=== PATIENT | female | born 1970 | race African-American/Black ===

== ENCOUNTER 2023-02-01 13:23 | Outpatient (RCR) | payer BC, SELFPAY | END 2023-02-01 23:59 | disposition home or self-care (01) | LOC: RPT 13:23 | PROVIDERS: ATTENDING PHYSICIAN Urology; FAMILY PHYSICIAN Nurse Practitioner | DX: N39.41 Urge incontinence (principal); N30.10 Interstitial cystitis (chronic) without hematuria; Z73.6 Limitation of activities due to disability | CPT/HCPCS: 97110 ==

== ENCOUNTER 2023-03-17 14:17 | Outpatient (RCR) | payer BC, SELFPAY | END 2023-03-17 15:24 | disposition home or self-care (01) | LOC: RPT 14:17 | PROVIDERS: ATTENDING PHYSICIAN Urology; FAMILY PHYSICIAN Nurse Practitioner | DX: N39.41 Urge incontinence (principal); N30.10 Interstitial cystitis (chronic) without hematuria; Z73.6 Limitation of activities due to disability | CPT/HCPCS: 97110 ==

== ENCOUNTER 2023-05-01 08:30 | Day surgery (SDC) | payer BC, SELFPAY ==
[2023-04-18 08:45] LABS: % Basophils 0.4 % (0-2); % Eosinophils 3.8 % (0-6); % Immature Granulocytes 0.2 % (0-0.5); % Lymphocytes 46.5 % (20.5-51.1); % Monocytes 7.2 % (1.7-9.3); % Neutrophils 41.9 % (42.2-75.2); Absolute Eosinophils 0.2 10^3/uL (0-0.7); Absolute Lymphocytes 2.6 10^3/uL (1.2-3.4); Absolute Monocytes 0.4 10^3/uL (0.1-0.6); Absolute Neutrophils 2.3 10^3/uL (1.4-6.5); Hematocrit 34.9 % (37.0-47.0); Hemoglobin 11.7 g/dL (12.0-16.0); Mean Corp Hgb Conc. 33.5 g/dL (33.0-37.0); Mean Corpuscular Hgb 26.2 pg (27.0-31.0); Mean Corpuscular Volume 78.1 fL (81.0-99.0); Mean Platelet Volume 10.5 fL (7.4-10.4); Nucleated Red Blood Cells % 0 %; Platelet Count 376 10^3/uL (130-400); Red Blood Cell Count 4.47 10^6/uL (4.20-5.40); Red Cell Dist. Width 13.6 % (11.5-14.5); White Blood Cell Count 5.6 10^3/uL (4.8-10.8)
[2023-04-18 08:55] LABS: PT 11.9 Sec (11.4-14.6)
[2023-04-18 08:56] LABS: APTT 28.8 Sec (23.4-35.0)
[2023-04-18 09:16] LABS: Blood Urea Nitrogen 10 mg/dl (7-17); Calcium 9.1 mg/dl (8.4-10.2); Carbon Dioxide 26 mmol/L (22-30); Chloride 104 mmol/L (98-107); Glucose 123 mg/dl (70-99); Potassium 4.2 mmol/L (3.5-5.1); Sodium 136 mmol/L (135-145); eGFR > 60.00
[2023-04-18 09:20] LABS: Urine Albumin 2+ (Neg - Trace); Urine Bilirubin Negative (Negative); Urine Character Clear (Clear); Urine Color Yellow; Urine Glucose Negative (Negative); Urine Ketone Negative (Negative); Urine Leukocyte Negative (Negative); Urine Nitrite Negative (Negative); Urine Occult Blood Negative (Negative); Urine Urobilinogen Negative (Neg - 1+)
[2023-04-18 10:05] LABS: Urine Bacteria Few (Negative); Urine Red Blood Cell 0-2 /HPF (0-2)
[2023-04-18 12:25] VITALS: BMI 33.9
[2023-05-01] VITALS (10 sets, daily range): BP systolic 132–159; BP diastolic 68–97; BMI 33.9
[2023-05-01 08:29] LABS: Glucose - Point of Care 144 mg/dl (70-99)
[2023-05-01] MEDS: TRANSDERM-SCOP 1 PATCH TRANSDERM (08:42)
[2023-05-01] MEDS: Pyridium 200 MG PO (08:42)
[2023-05-01] MEDS: NORMOSOL-R 1000 IV (08:42)
[2023-05-01 10:03] LABS: Glucose - Point of Care 118 mg/dl (70-99)
--- NOTE | 2023-05-01 10:30 | SUR.PHASEI ---
Pt received Pyridium 200mg this morning in [facility]. Dr. Mendez made aware and will not give the other dose ordered in PACU due to the one she took this morning.
[2023-05-01] MEDS: ROXICODONE 5 MG PO (11:39)
== END 2023-05-01 12:00 | disposition home or self-care (01) ==
LOC: SDS 08:30
PROVIDERS: ATTENDING PHYSICIAN Urology; FAMILY PHYSICIAN Nurse Practitioner
DX: N30.10 Interstitial cystitis (chronic) without hematuria (principal); N39.41 Urge incontinence; N32.89 Other specified disorders of bladder
CPT/HCPCS: 52287; 52260; 80048; 81003; 81015; 82962; 85025; 85610; 85730; 87086; J0585

== ENCOUNTER → 2023-05-31 17:47 | Outpatient (REF) | payer BC, SELFPAY | LOC: RAD 17:47 | PROVIDERS: ATTENDING PHYSICIAN Nurse Practitioner | DX: M54.2 Cervicalgia (principal) | CPT/HCPCS: 72052 ==

== ENCOUNTER → 2023-07-14 | Outpatient (REF) | payer BC, SELFPAY | LOC: DHSLP | PROVIDERS: ATTENDING PHYSICIAN Internal Medicine; FAMILY PHYSICIAN Nurse Practitioner | DX: G47.33 Obstructive sleep apnea (adult) (pediatric) (principal) | CPT/HCPCS: 95800 ==

== ENCOUNTER 2023-08-09 15:20 | Outpatient (RCR) | payer BC, SELFPAY | END 2023-08-09 23:59 | disposition home or self-care (01) | LOC: RPT 15:20 | PROVIDERS: ATTENDING PHYSICIAN Pain Medicine Interventional Pain Medicine; FAMILY PHYSICIAN Nurse Practitioner | DX: M54.12 Radiculopathy, cervical region (principal); Z73.6 Limitation of activities due to disability | CPT/HCPCS: 97110; 97140; 97161 ==

== ENCOUNTER 2023-09-13 11:16 | Outpatient (RCR) | payer BC, SELFPAY | END 2023-09-13 23:59 | disposition home or self-care (01) | LOC: RPT 11:16 | PROVIDERS: ATTENDING PHYSICIAN Pain Medicine Interventional Pain Medicine; FAMILY PHYSICIAN Nurse Practitioner | DX: M54.12 Radiculopathy, cervical region (principal); Z73.6 Limitation of activities due to disability | CPT/HCPCS: 97110; 97140 ==

== ENCOUNTER 2023-09-20 11:07 | Outpatient (RCR) | payer BC, SELFPAY | END 2023-09-20 23:59 | disposition home or self-care (01) | LOC: RPT 11:07 | PROVIDERS: ATTENDING PHYSICIAN Pain Medicine Interventional Pain Medicine; FAMILY PHYSICIAN Nurse Practitioner | DX: M54.12 Radiculopathy, cervical region (principal); Z73.6 Limitation of activities due to disability | CPT/HCPCS: 97110; 97140 ==

== ENCOUNTER → 2023-11-22 15:49 | Outpatient (REF) | payer BC, SELFPAY | LOC: RAD 15:49 | PROVIDERS: ATTENDING PHYSICIAN Nurse Practitioner Family | DX: R05.8 Other specified cough (principal) | CPT/HCPCS: 71046 ==

== ENCOUNTER → 2023-11-24 06:36 | Day surgery (SDC) | payer BC, SELFPAY | LOC: GI 06:36 | PROVIDERS: ATTENDING PHYSICIAN Internal Medicine Gastroenterology | DX: R13.10 Dysphagia, unspecified (principal); R12 Heartburn; K44.9 Diaphragmatic hernia without obstruction or gangrene; K31.89 Other diseases of stomach and duodenum; K29.50 Unspecified chronic gastritis without bleeding | CPT/HCPCS: 43239; 88305; 88342 ==

== ENCOUNTER 2023-12-04 06:42 | Day surgery (SDC) | payer BC, SELFPAY ==
[2023-11-24 08:41] VITALS: BMI 32.4
[2023-11-24 10:57] LABS: Urine Albumin 2+ (Neg - Trace); Urine Bilirubin Negative (Negative); Urine Character Clear (Clear); Urine Color Yellow; Urine Glucose Negative (Negative); Urine Ketone Negative (Negative); Urine Leukocyte Negative (Negative); Urine Nitrite Negative (Negative); Urine Occult Blood Negative (Negative); Urine Specific Gravity 1.015 (<1.030); Urine Urobilinogen Negative (Neg - 1+)
[2023-11-24 10:58] LABS: Hematocrit 36.8 % (37.0-47.0); Hemoglobin 12.1 g/dL (12.0-16.0); Mean Corp Hgb Conc. 32.9 g/dL (33.0-37.0); Mean Corpuscular Hgb 26.7 pg (27.0-31.0); Mean Corpuscular Volume 81.1 fL (81.0-99.0); Mean Platelet Volume 10.7 fL (7.4-10.4); Platelet Count 364 10^3/uL (130-400); Red Blood Cell Count 4.54 10^6/uL (4.20-5.40); Red Cell Dist. Width 13.9 % (11.5-14.5); White Blood Cell Count 6.3 10^3/uL (4.8-10.8)
[2023-11-24 11:06] LABS: Urine Red Blood Cell 0-2 /HPF (0-2); Urine White Cell 0-2 /HPF (0-5)
[2023-11-24 11:07] LABS: INR 0.86; PT 11.6 Sec (11.4-14.6)
[2023-11-24 11:08] LABS: APTT 29.4 Sec (23.4-35.0)
[2023-11-24 11:36] LABS: % Basophils 0.5 % (0-2); % Eosinophils 2.4 % (0-6); % Immature Granulocytes 0.2 % (0-0.5); % Lymphocytes 53.7 % (20.5-51.1); % Monocytes 6.7 % (1.7-9.3); % Neutrophils 36.5 % (42.2-75.2); Absolute Eosinophils 0.2 10^3/uL (0-0.7); Absolute Lymphocytes 3.4 10^3/uL (1.2-3.4); Absolute Monocytes 0.4 10^3/uL (0.1-0.6); Absolute Neutrophils 2.3 10^3/uL (1.4-6.5); Nucleated Red Blood Cells % 0 %
[2023-11-24 11:45] LABS: Blood Urea Nitrogen 13 mg/dl (7-17); Calcium 9.6 mg/dl (8.4-10.2); Carbon Dioxide 30 mmol/L (22-30); Chloride 102 mmol/L (98-107); Estimated Creatinine Clearance 123 ml/min; Glucose 108 mg/dl (70-99); Potassium 4.6 mmol/L (3.5-5.1); Sodium 143 mmol/L (135-145); eGFR > 60.00
[2023-12-04] VITALS (11 sets, daily range): BP systolic 121–156; BP diastolic 66–98; BMI 32.4
[2023-12-04 10:02] LABS: Glucose - Point of Care 116 mg/dl (70-99)
[2023-12-04] MEDS: TRANSDERM-SCOP 1 PATCH TRANSDERM (10:35)
[2023-12-04 11:37] LABS: Glucose - Point of Care 92 mg/dl (70-99)
[2023-12-04] MEDS: Pyridium 200 MG PO (11:57)
== END 2023-12-04 13:10 | disposition home or self-care (01) ==
LOC: SDS 06:42
PROVIDERS: ATTENDING PHYSICIAN Urology; FAMILY PHYSICIAN Nurse Practitioner
DX: N30.10 Interstitial cystitis (chronic) without hematuria (principal); N39.41 Urge incontinence
CPT/HCPCS: 52287; 52260; 80048; 81003; 81015; 82962; 85025; 85610; 85730; 93005; J0585

== ENCOUNTER 2024-01-02 12:45 | Inpatient (IN) | payer BC, SELFPAY ==
[2024-01-02] VITALS (8 sets, daily range): BP systolic 123–156; BP diastolic 74–108; BMI 30.7
--- NOTE | 2024-01-02 09:20 | ED.GENMED ---
History of Present Illness
General
Chief Complaint: Urinary Symptoms
Source: patient
Exam Limitations: none
Time Seen by Provider: 01/02/24 09:04
Nursing documentation reviewed up to this point in time: agreed with
History of Present Illness
History of Present Illness:
53 yr old female with PMH of interstitial cystitis presents for urinary symptoms. Patient reports she was sent in by . On December 03 she had cystoscopy hydrodistention of the bladder with Botox injections for chronic interstitial
cystitis and when she went for her follow-up her urine culture was found to be positive. She presents with urine culture results that do show E. coli and Klebsiella sensitive to cefepime.
Patient denies any fevers but does complain of urinary frequency cloudy and smelly urine.
Denies any nausea/vomiting/abdominal pain.
Review of Systems
Review of Systems
Allergies reviewed?: Yes
All Other Systems: ROS reviewed and negative except as documented in HPI and ROS
Constitutional: Denies fever, fatigue or chills
Cardiac: Reports no symptoms
ABD/GI: Reports no symptoms
: Reports frequency and other (Cloudy urine foul smelling )
Musculoskeletal: Reports no symptoms
Skin: Reports no symptoms
Psychiatric: Reports no symptoms
Phy Exam
General Physical Exam
General Presentation: well appearing
General age: appears stated age
General Skin: warm and dry
General Habitus: normal
General Mental: alert
General Hydration: appears well hydrated
Gastrointestinal Exam
Gastrointestinal Exam: soft
Neurological Exam
Neurological Exam: alert and oriented x3
Musculoskeletal Exam
Musculoskeletal Exam: full ROM
Skin Exam
Skin Exam: normal color and warm/dry
Psychiatric Exam
Psychiatric Exam: normal mood/affect
Course
Orders/Labs/Results
Orders:
Orders
01/02/24 09:19
IV Insert/Care/Rem.- Treatment PRN
01/02/24 09:32
Complete Blood Count/With Diff Urgent
Comprehensive Metabolic Panel Urgent
Urinalysis Reflex To Culture Urgent
Date Specimen was Collected: 01/02/24
Time Specimen was Collected: :25
Urine Microscopic Reflex Cult Urgent
Urine Culture Urgent
ALPHONSO Source: U
Specimen Description:
Date Specimen was Collected: 01/02/24
Time Specimen was Collected: :
01/02/24 10:22
Cefepime HCl [Maxipime] 1,000 mg IV NOW STA
01/02/24 10:25
Sterile Water [Sterile Water For Injection] 20 ml .ROUTE .STK-MED
Abnormal Lab Results
01/02/24
09:32
Hgb 11.6 L g/dL
(12.0-16.0)
Hct 35.3 L %
(37.0-47.0)
MCH 26.7 L pg
(27.0-31.0)
MCHC 32.9 L g/dL
(33.0-37.0)
Glucose 100 H mg/dl
(70-99)
ALT 38 H U/L
(0-35)
Urine Nitrite (Reflex) Positive A
(Negative)
Leukocyte Esterase Rfl 2+ A
(Negative)
Urine RBC 11-15 A /HPF
(0-2)
Urine WBC (Reflex) 40-50 A /HPF
(0-5)
Urine Bacteria (Reflex) Many A
(Negative)
Urine Albumin (Reflex) 1+ A
(Neg - Trace)
01/02/24 09:32
01/02/24 09:32
Vital Signs
Initial and Last Documented VS:
Initial Vital Signs
Temp Pulse Resp BP Pulse Ox
98.2 F 87 16 136/82 99
01/02/24 08:47 01/02/24 08:47 01/02/24 08:47 01/02/24 08:47 01/02/24 08:47
Last Documented Vital Signs
Temp Pulse Resp BP Pulse Ox
98.2 F 85 16 123/84 98
01/02/24 08:47 01/02/24 10:07 01/02/24 10:07 01/02/24 10:07 01/02/24 10:07
MDM/Problems Addressed
Differential Diagnosis Includes:
not limited to: uti
MDM/Problems Addressed:
As documented patient is a 53-year-old female with chronic interstitial cystitis followed by . Patient was sent in for admission for positive urine culture which was resistant to most antibiotics except IV cefepime. Patient denies any
fever she is nontoxic-appearing she does complain of cloudy foul-smelling urine with urinary frequency. She is afebrile with a normal white count, normal chemistries urine does appear positive with nitrates and 40�50 white blood cells 11�15 RBCs
and many bacteria.
Case reviewed with Dr. Ordoñez will admit.
*Pulse Oximetry
Patient hypoxic: no
*Critical Care Note
Total Time (30-74mins, 75-104mins- exclusive of procedures): Not Applicable
Data Reviewed
Review of Other/Old Records Reveals: Other (previous operative reports for botox of bladder 12/04/23 )
Patient Management
Discussion with other providers: Fingerprint Expert (DR Ordoñez )
ED Attending Note
-
Portions of this chart may have been created with voice recognition software.� Occasional wrong word or��sound alike� substitutions may have occurred due to the inherent limitations of voice recognition software.
Discharge Plan
Departure
Patient Disposition: Admit
Date of Disposition: 01/02/24
Time of Disposition: 10:52
Admit to: Med/Surg
Admit to doctor: hospitalist
Presentation/result/management discussed w/ accepting MD/DO: Hospitalist
Patient with high blood pressure during this ER visit?: No
Condition: Fair
Covid-19: Not Applicable
Discharge Problem:
UTI (urinary tract infection)
Prescriptions:
No Action
omeprazole 40 mg Capsule,Delayed Release(Dr/Ec)
40 mg PO DAILY
cetirizine [Zyrtec] 10 mg Tablet
10 mg PO DAILY
biotin 10,000 mcg Capsule
10,000 mcg PO NOON
fluticasone propionate [Flonase Allergy Relief] 50 mcg/actuation [place],Suspension
1 spray INTRANASAL DAILY
chromium picolinate 1,000 mcg Tablet
1,000 mcg PO NOON
multivitamin Tablet
1 tab PO NOON
nitrofurantoin monohyd/m-cryst [Macrobid] 100 mg Capsule
100 mg PO PRN PRN (Reason: UTI )
metformin 500 mg Tablet Extended Release 24 Hr
1,000 mg PO 1800
evening primrose oil 1,300 mg Capsule
1,300 mg PO NOON
famotidine 40 mg Tablet
40 mg PO HS
Estroven 155 mg Capsule
1 cap PO DAILY
Sea Kumari 500 MG
2 tab PO NOON
Trulance 3 mg Tablet
3 mg PO DAILY
Referrals:
Hailey Pelletier CRNP [Family Provider] -
Interventions
Interventions:
*Risk Screen - Suicide Last Done: 01/02/24 08:47
*General Assessment Last Done: 01/02/24 08:47
*Neglect/Abuse Screening Last Done: 01/02/24 08:47
ED- Fall Risk Assessment Last Done: 01/02/24 09:03
*ED COVID-19 Vaccine History Last Done: 01/02/24 09:10
ED-Female Genitourinary Assessment Last Done: 01/02/24 09:10
Discharge Date and Time
Print Language: CZECH
[2024-01-02 09:45] LABS: % Basophils 0.4 % (0-2); % Eosinophils 4.8 % (0-6); % Immature Granulocytes 0.2 % (0-0.5); % Lymphocytes 43.5 % (20.5-51.1); % Monocytes 6.2 % (1.7-9.3); % Neutrophils 44.9 % (42.2-75.2); Absolute Eosinophils 0.2 10^3/uL (0-0.7); Absolute Lymphocytes 2.2 10^3/uL (1.2-3.4); Absolute Monocytes 0.3 10^3/uL (0.1-0.6); Absolute Neutrophils 2.2 10^3/uL (1.4-6.5); Hematocrit 35.3 % (37.0-47.0); Hemoglobin 11.6 g/dL (12.0-16.0); Mean Corp Hgb Conc. 32.9 g/dL (33.0-37.0); Mean Corpuscular Hgb 26.7 pg (27.0-31.0); Mean Corpuscular Volume 81.1 fL (81.0-99.0); Mean Platelet Volume 9.6 fL (7.4-10.4); Nucleated Red Blood Cells % 0 %; Platelet Count 366 10^3/uL (130-400); Red Blood Cell Count 4.35 10^6/uL (4.20-5.40); Red Cell Dist. Width 13.7 % (11.5-14.5)
[2024-01-02 09:59] LABS: ALT (SGPT) 38 U/L (0-35); AST (SGOT) 35 U/L (14-36); Albumin 4.4 g/dl (3.5-5.0); Alkaline Phosphatase 51 U/L (38-126); Blood Urea Nitrogen 13 mg/dl (7-17); Calcium 9.8 mg/dl (8.4-10.2); Carbon Dioxide 26 mmol/L (22-30); Chloride 103 mmol/L (98-107); Estimated Creatinine Clearance 124 ml/min; Glucose 100 mg/dl (70-99); Potassium 4.5 mmol/L (3.5-5.1); Sodium 139 mmol/L (135-145); Total Bilirubin 0.4 mg/dl (0.2-1.3); Total Protein 7.3 g/dl (6.3-8.2); eGFR > 60.00
[2024-01-02 10:06] LABS: Urine Albumin 1+ (Neg - Trace); Urine Bilirubin Negative (Negative); Urine Character Clear (Clear); Urine Color Yellow; Urine Glucose Negative (Negative); Urine Ketone Negative (Negative); Urine Leukocyte 2+ (Negative); Urine Nitrite Positive (Negative); Urine Occult Blood Negative (Negative); Urine Specific Gravity 1.015 (<1.030); Urine Urobilinogen Negative (Neg - 1+)
[2024-01-02] MEDS: MAXIPIME 1000 MG IV (10:32)
[2024-01-02 10:39] LABS: Urine Squamous Cell 26-30 /LPF (Few); Urine Urothelial Cell 0-2 /LPF (FEW)
[2024-01-02 10:40] LABS: Urine Bacteria Many (Negative); Urine White Cell 40-50 /HPF (0-5)
--- NOTE | 2024-01-02 12:05 | HPS.HSE ---
Family Physician
-
Family Physician: JOHN Hinson
Chief Complaint
-
urinary frequency
History of Present Illness
53 yr old female with PMH of interstitial cystitis ,GERD, Type 2 Dm presents for urinary frequency and smelly urine. patient stated lower abdominal and back cramps. Patient reports she was sent in by . On December 03 she had cystoscopy
hydrodistention of the bladder with Botox injections for chronic interstitial cystitis and when she went for her follow-up her urine culture was found to be positive. patient stated, she developed the symptoms two days after the procedure. patient
denied fever, chills, chest pain, sob. denied PHILLIPS, dizzy or syncopal episode.denied abdominal pain,n,v,d. her urine culture result showd E. coli and Klebsiella sensitive to cefepime.
patient received a dose of cefepime in ER. admitting for further management.
Medical History
Past Medical History
Past Medical History: Reports Other
Additional Past Medical History:
Interstitial cystitis
IBS
Anxiety
Heartgard
Type 2 diabetes
Depression
Obstructive sleep apnea
Hiatal hernia
Hemorrhoids
Past Surgical History: Reports Other
Additional Past Surgical History:
Partial hysterectomy
Tubularization
Ganglion cyst removed
Cell repair
Salpingectomy
Bladder Botox
Social History
Tobacco: Non-smoker
Alcohol: None
Drug: None
Personal:
Living: With Family
Employment: Employed
Family History
Family History: Not pertinent
Allergies / Home Medications
Allergies reflects when Allergies were last updated in [facility].
Home Medications with original date entered in [facility]
Allergy/Medication List:
Allergies
Allergy/AdvReac Type Severity Reaction Status Date / Time
amitriptyline Allergy severe Verified 01/02/24 08:51
depression
pollen extracts Allergy nasal Verified 01/02/24 08:51
congestion
diazepam [From Valium] AdvReac Severe Verified 01/02/24 08:51
Depression
Home Medications
omeprazole 40 mg capsule,delayed release 40 mg PO DAILY 11/22/21
biotin 10,000 mcg capsule 10,000 mcg PO NOON Supplement 04/27/22
cetirizine 10 mg tablet (Zyrtec) 10 mg PO DAILY Allergies 04/27/22
chromium picolinate 1,000 mcg tablet 1,000 mcg PO NOON Supplement 04/27/22
fluticasone propionate 50 mcg/actuation nasal spray,suspension (Flonase Allergy Relief) 1 spray intranasal DAILY 04/27/22
evening primrose oil 1,300 mg capsule 1,300 mg PO NOON 04/26/23
metformin 500 mg tablet,extended release 24hr (osmotic) 1,000 mg PO QPM 04/26/23
famotidine 40 mg tablet 40 mg PO HS 11/22/23
soy isoflavone-black cohosh root-magnolia bark 155 mg capsule (Estroven) 1 cap PO DAILY 11/22/23
plecanatide 3 mg tablet (Trulance) 3 mg PO DAILY 12/04/23
acetaminophen 325 mg tablet 650 mg PO DAILYPRN PRN mild pain 01/02/24
ciclopirox 1 % shampoo 0 ml topical WE Skin Issues 01/02/24
clobetasol 0.05 % scalp solution 1 applic topical WE 01/02/24
doxylamine succinate 25 mg tablet (Unisom (doxylamine)) 25 mg PO HS PRN insomnia 01/02/24
estradiol 0.01% (0.1 mg/gram) vaginal cream (Estrace) 1 appful vaginal QPM 01/02/24
hydroquinone 4 % topical cream 1 applic topical BID 01/02/24
polyethylene glycol 400 0.25 % eye drops (Blink Tears) 1 drp ophthalmic (eye) DAILYPRN PRN dry eye 01/02/24
therapeutic multivitamin 1 tab PO DAILY 01/02/24
Review of Systems
-
Constitutional: Reports No Symptoms
EENT: Reports No Symptoms
Respiratory: Reports No Symptoms
Cardiac: Reports No Symptoms
Abdomen/GI: Reports No Symptoms
: Reports Frequency
Musculoskeletal: Reports No Symptoms
Skin: Reports No Symptoms
Neurological: Reports No Symptoms
Endocrine: Reports No Symptoms
Hematologic/Lymphatic: Reports No Symptoms
Psych: Reports No Symptoms
Physical Exam
Vital Signs
Vital Signs
Temp Pulse Resp BP Pulse Ox
98.2 F 71 15 147/100 97
01/02/24 08:47 01/02/24 12:04 01/02/24 12:04 01/02/24 12:04 01/02/24 11:37
Physical Exam
General: Well Developed, Well Nourished and No Apparent Distress
HEENT: NormoCephalic, Moist mucous membranes and Atraumatic
Respiratory: Clear
Cardiac: S1/S2 and Regular Rhythm; No Murmur or Rub
GI: Soft, Non Tender, Non Distended and Normal Bowel Sounds; No Organomegaly
Rectal: Deferred by Provider
Musculoskeletal: No Clubbing, No Cyanosis and No Edema
Skin: No Rash
Neuro: AO x 3 and Nonfocal/grossly intact
Psych: Calm
Laboratory Results
-
01/02/24 09:32
01/02/24 09:32
Laboratory Results
Total Bilirubin 0.4 mg/dl (0.2-1.3) 01/02/24 09:32
AST 35 U/L (14-36) 01/02/24 09:32
ALT 38 U/L (0-35) H 01/02/24 09:32
Alkaline Phosphatase 51 U/L (38-126) 01/02/24 09:32
Data Reviewed
-
Lab Data: Labs Reviewed by me
Impression/Plan
-
# E. coli/klebsiella pneumonia urinary tract infection
# Chronic interstitial cystitis
-IV cefepime continued
-Tylenol as needed for fever and pain
-Positive repeat UA, urine culture pending
# GERD
-Famotidine continued
# Type 2 diabetes
-Metformin continued
-Sliding scale
-Carb controlled diet
# DVT prophylaxis
-Lovenox subcu
# CODE STATUS
-Full code
--- NOTE | 2024-01-02 12:35 | W.PN.UPDATE ---
Update Note
Progress Note Update
This is an addendum to the H&P written by Chel Zavala on 01/02/2024. Patient seen and examined independently with SECURITY REPRESENTATIVE.
53-year-old female past medical history of interstitial cystitis, recurrent UTI presenting with urinary symptoms. She had hydrodistention of the bladder during cystoscopy with Botox injections for chronic interstitial cystitis on December 03.
Follow-up urine culture was positive showing E. coli and Klebsiella.
She has urinary frequency and suprapubic pain. Urine culture scanned into chart shows E. coli and Klebsiella with multidrug resistance sensitive to cefepime. Repeat urine culture pending. Continue cefepime.
[2024-01-02] MEDS: TYLENOL 650 MG PO (16:15)
--- NOTE | 2024-01-02 16:15 | PTCARENOTE ---
Received patient from ED into room 2133. Patient AAOX3, VSS, ambulatory in room independently. Patient c/o lower abdomen pain rated 5/10, PRN tylenol administered - see APR. Diet order entered for patient, accucheck and sliding scale ordered per MD.
Patient oriented to room and call jett, updated on plan of care with family at bedside, patient states no concerns at this time.
[2024-01-02 16:38] LABS: Glucose - Point of Care 79 mg/dl (70-99)
[2024-01-02] MEDS: GLUCOPHAGE XR EXTENDED RELEASE 1000 MG PO (17:13)
[2024-01-02] MEDS: LOVENOX 40 MG SC (17:15)
[2024-01-02] MEDS: STERILE WATER FOR INJECTION 10 ML IV (17:19)
[2024-01-02] MEDS: MAXIPIME 2000 MG IV (17:19)
[2024-01-02] MEDS: ROXICODONE 10 MG PO (18:17)
[2024-01-02 21:13] LABS: Glucose - Point of Care 114 mg/dl (70-99)
[2024-01-02] MEDS: PEPCID 40 MG PO (22:11)
[2024-01-03] MEDS: MAXIPIME 2000 MG IV ×2 (01:57→10:26)
[2024-01-03] MEDS: STERILE WATER FOR INJECTION 10 ML IV ×2 (01:58→10:26)
[2024-01-03 07:34] LABS: Hematocrit 34.4 % (37.0-47.0); Hemoglobin 11.3 g/dL (12.0-16.0); Mean Corp Hgb Conc. 32.8 g/dL (33.0-37.0); Mean Corpuscular Hgb 26.6 pg (27.0-31.0); Mean Corpuscular Volume 80.9 fL (81.0-99.0); Platelet Count 369 10^3/uL (130-400); Red Blood Cell Count 4.25 10^6/uL (4.20-5.40); Red Cell Dist. Width 13.9 % (11.5-14.5); White Blood Cell Count 4.7 10^3/uL (4.8-10.8)
[2024-01-03 07:59] VITALS: BP 131/67
[2024-01-03 08:35] LABS: Glucose - Point of Care 109 mg/dl (70-99)
[2024-01-03] MEDS: PROTONIX 40 MG PO (09:04)
[2024-01-03 09:38] LABS: Blood Urea Nitrogen 15 mg/dl (7-17); Calcium 9.4 mg/dl (8.4-10.2); Carbon Dioxide 23 mmol/L (22-30); Chloride 105 mmol/L (98-107); Estimated Creatinine Clearance 124 ml/min; Glucose 106 mg/dl (70-99); Potassium 4.6 mmol/L (3.5-5.1); Sodium 141 mmol/L (135-145); eGFR > 60.00
[2024-01-03] MEDS: ZYRTEC 10 MG PO (10:26)
--- NOTE | 2024-01-03 10:44 | CM ---
Reviewed the chart notes and spoke with the patient at the bedside. The patient resides with her spouse in a two story home with one step to enter. The patient reports only DME in home is a CPAP. The patient reports no VN or SNF. The patient
patient confirmed her pharmacy of choice is the [facility]. CM continues to be available to patient/family and is monitoring medical plan for needs at discharge.
Plan: Discharge to home when medically stable. No needs anticipated.
--- NOTE | 2024-01-03 11:46 | W.PN.HOSP.TC ---
Today's Communication/Plan
-
see note
continue abx
ID evaluation
Assessment / Plan
Assessment / Plan
1. ESBL organism on Urine culture
R/o UTI
H/o Chronic interstitial cystitis
-s/p botox inj on 12/03 for interstitial cystitis
-patient symptoms of discomfort started on 12/05
-Urine cs collected on 12/24 showing pansens Ecoli and ESBL klebsiella PNA (urine cs report scanned
-UA reviewed and have pyruai 40-50, many bacteria
-Urine cs collected in ER - growing gram neg bacilli
-Surprisingly patient not mounting any systemic reaction despite having ESBL organism - no leukocytosis, borderline leukopenic, afebrile
-ID asked for further help as patient requesting if could be discharged today
-Discussed with primary urologist over the phone, decision of abx deferred to ID.
-Based on susceptibility of OP urine cs report maintain on cefepime
2. GERD
-Famotidine continued
3. Type 2 diabetes
-Metformin continued
-Sliding scale
-Carb controlled diet
DVT prophylaxis -Lovenox subcu
CODE STATUS -Full code
Total time spent : 53 mins
Anticipated Discharge: 24 - 48 hours
Subjective/Interval History
-
Date of Service: January 03, 2024
afebrile/no significant discomfort/dysuria today
no new issues overnight
Objective Data
-
Labs:
Laboratory Results
01/03/24
06:46
WBC 4.7 L
Hgb 11.3 L
Hct 34.4 L
Plt Count 369
Sodium 141
Potassium 4.6
Chloride 105
Carbon Dioxide 23
BUN 15
Creatinine 0.6
Glucose 106 H
Calcium 9.4
Vital Signs:
Vital Signs
Temp Pulse Resp BP Pulse Ox
97.8 F 72 16 131/67 97
01/03/24 07:59 01/03/24 07:59 01/03/24 07:59 01/03/24 07:59 01/03/24 10:39
I&O
01/02/24 01/03/24 01/04/24
06:59 06:59 06:59
Intake Total 480 / 480
Balance 480 / 480
Review of Systems
-
Respiratory: Reports No Symptoms
Cardiac: Reports No Symptoms
Abdomen/GI: Reports No Symptoms
Genitourinary: Denies Dysuria, Flank Pain, Incontinence or Urgency
Physical Exam
-
General: No Apparent Distress
Neuro: Awake, Alert, Oriented and No Motor Deficits
[2024-01-03 12:44] LABS: Glucose - Point of Care 109 mg/dl (70-99)
[2024-01-03] MEDS: NON-FORMULARY ITEM 1 APPLIC TOPICAL (12:44)
--- NOTE | 2024-01-03 14:08 | CON.ID ---
Consultation
-
Date/Time Consultation Requested: 01/03/24 11:44
Date/Time Consultation Performed: 01/03/24 14:08
Requesting Provider: Dr Moise
Performing Provider: Dr Grimes
Reason for Consultation: MDRO UTI
Chief Complaint / Past History
Chief Complaint
urinary frequency
History of Present Illness
Ms Busch is a pleasant 53 year old feamle with history of interstitial cystitis who underwent 01/03 cystoscopy and hydrodistension with botox injection and two days later was found to have suprapubic pain; during my evaluation she denies ever having
new flank pains, fevers or chills. No nausea, vomiting of abdominal pain. An outpatient urine culture grew 100K pansensitive E coli and 50-100K ESBL K pneumoniae (listed as sensitive to cefepime on urinary sensitivities). She initially presented
here and was started on cefepime and has completed two days worth of treatment. She reports much improved suprapubic tenderness and no dysuria. ID is asked to comment on discharge medications.
Past History
Additional Past Medical History:
Interstitial cystitis
IBS
Anxiety
Heartgard
Type 2 diabetes
Depression
Obstructive sleep apnea
Hiatal hernia
Hemorrhoids
Additional Past Surgical History:
Partial hysterectomy
Tubularization
Ganglion cyst removed
Salpingectomy
Bladder Botox
Allergy History:
amitriptyline Allergy (Verified 01/02/24 08:51)
severe depression
diazepam [From Valium] Allergy (Verified 01/02/24 16:53)
Severe Depression
pollen extracts Allergy (Verified 01/02/24 08:51)
nasal congestion
Medications Reviewed: Yes
Social History
Tobacco: Non-Smoker
Alcohol: None
Drug: None
Family History
Family History: Not Pertinent
Review of Systems
Review of Systems
General: Negative Fever or Chills
All systems: All other systems were reviewed and were negative
Vital Signs
Temp Pulse Resp BP Pulse Ox
97.8 F 72 16 131/67 97
01/03/24 07:59 01/03/24 07:59 01/03/24 07:59 01/03/24 07:59 01/03/24 10:39
Physical Exam
Physical Exam
Constitutional: No Acute Distress
Cardiovascular: Regular Rate and S1/S2; Negative Murmur or Rub
Pulmonary: Clear and Symmetric; Negative Wheezes, Rales or Rhonchi
Gastrointestinal: Soft, Non Tender, Non Distended and Normal Bowel Sounds
Genito-Urinary: Negative Suprapubic Tenderness or CVA Tenderness
Skin: Warm and Dry; Negative Rash or Jaundice
Lab / Diagnostic Study Results
01/03/24 06:46
01/03/24 06:46
Abs Immat Gran (auto) 0.0 10^3/uL (0-0.05) 01/02/24 09:32
Absolute Neuts (auto) 2.2 10^3/uL (1.4-6.5) 01/02/24 09:32
Absolute Lymphs (auto) 2.2 10^3/uL (1.2-3.4) 01/02/24 09:32
Absolute Monos (auto) 0.3 10^3/uL (0.1-0.6) 01/02/24 09:32
Absolute Basos (auto) 0.0 10^3/uL (0-0.2) 01/02/24 09:32
Immature Gran % 0.2 % (0-0.5) 01/02/24 09:32
Neutrophils % 44.9 % (42.2-75.2) 01/02/24 09:32
Lymphocytes % 43.5 % (20.5-51.1) 01/02/24 09:32
Monocytes % 6.2 % (1.7-9.3) 01/02/24 09:32
Eosinophils % 4.8 % (0-6) 01/02/24 09:32
Basophils % 0.4 % (0-2) 01/02/24 09:32
Ur Squamous Epith Cells 26-30 /LPF (Few) 01/02/24 09:32
Microbiology Results
Micro:
01/02/24 09:32 Urine Culture - Preliminary
Urine Gram negative bacilli
Assessment / Plan
Uncomplicated UTI due to E coli and ESBL K Pneumoinae
- no signs of pyelonephritis on my exam or by history obtained by me
- has had two days of potentially effective Rx with marked improvement in symptoms
- plan one time dose of fosfomycin now which will complete a 5 day effective course for her
- I am told her urologist has also called in a course of cefuroxime - no objection from my perspective, the ESBL isolate will have been effectively treated with the cefepime/fosfomycin.
- stable for dc from ID perspective
Care Review
Plan reviewed with: Physician (Dr Moise- ok for dc)
[2024-01-03] MEDS: MONUROL 3 GM PO (14:25)
[2024-01-03 14:31] LABS: Glycohemoglobin (HgbA1c) 6.1 % (4.0-5.6)
[2024-01-03 14:36] VITALS: BP 164/97
--- NOTE | 2024-01-03 17:17 | W.DCSUMMARY ---
Discharge Summary
Discharge Data
Date of Admission: 01/02/24
Date of Discharge: 01/03/24
-
Pending Results: No
Hospital Course
Discharging Physician : Dr Rigo Moise
Disposition : To home
Primary care physician : JOHN Hinson
Principal Discharge diagnosis :
Extended spectrum beta-lactamase producing Klebsiella pneumonia and pansensitive Escherichia coli urinary tract infection
Chronic Discharge diagnosis :
History of chronic interstitial cystitis
Gastroesophageal reflux disease
Type 2 diabetes mellitus
Irritable bowel syndrome
Anxiety/depression
Obstructive sleep apnea
History of hiatal hernia
Hemorrhoids
Hospital Course :
Patient is a 53-year-old female with a worsening past medical history came to ER with lower abdominal discomfort/dysuria and smelly urine. Patient have a history of chronic interstitial cystitis and underwent bladder Botox injection by urology in
outpatient basis last month. Postprocedure patient was noted to having some urinary discomfort and patient had urine analysis/urine culture checked on 12/24. Urine culture was reported to be positive for ESBL Klebsiella and pansensitive E. coli.
Patient was asked to come to ER for further evaluation. Patient was not septic. Based on outpatient urine culture susceptibility patient was maintained on cefepime. ID was involved in care and after evaluation recommended 1 dose of fosfomycin and
discontinuation of further antibiotic. Patient was already given cefuroxime prescription by primary urologist and ID cleared to finish the course. Patient was discharged home at this point.
Important imaging findings :
None
Procedure findings :
None
Discharge Plan
-
Patient Disposition: Home (Routine Discharge)
Discharge Diagnosis/Procedures: ESBL organism UTI
Condition: Fair
Diet: Regular
Activity: As tolerated
Driving Restrictions: As prior to admission
Bathing Restrictions: OK to Shower
Activity Restrictions/Additional Instructions:
Please finish course of antibiotics prescribed by Dr eMndez.
Referrals:
Emeli Mendez, DO [Active] -
Hailey Pelletier CRNP [Family Provider] - in one week
Prescriptions:
Continued
omeprazole 40 mg Capsule,Delayed Release(Dr/Ec)
40 mg PO DAILY
cetirizine [Zyrtec] 10 mg Tablet
10 mg PO DAILY
biotin 10,000 mcg Capsule
10,000 mcg PO NOON
fluticasone propionate [Flonase Allergy Relief] 50 mcg/actuation [place],Suspension
1 spray INTRANASAL DAILY
chromium picolinate 1,000 mcg Tablet
1,000 mcg PO NOON
metformin 500 mg Tablet Extended Release 24 Hr
1,000 mg PO QPM
evening primrose oil 1,300 mg Capsule
1,300 mg PO NOON
famotidine 40 mg Tablet
40 mg PO HS
Estroven 155 mg Capsule
1 cap PO DAILY
Trulance 3 mg Tablet
3 mg PO DAILY
acetaminophen 325 mg Tablet
650 mg PO DAILYPRN PRN (Reason: mild pain)
hydroquinone 4 % Cream
1 applic TOPICAL BID
Rx Instructions:
both feet
therapeutic multivitamin Tablet
1 tab PO DAILY
Unisom (doxylamine) 25 mg Tablet
25 mg PO HS PRN (Reason: insomnia)
estradiol [Estrace] 0.01 % (0.1 mg/gram) Cream
1 appful VAGINAL QPM
Rx Instructions:
for two weeks then decrease to twice a week
clobetasol 0.05 % Solution
1 applic TOPICAL WE
Rx Instructions:
scalp
ciclopirox 1 % Shampoo
0 ml TOPICAL WE
Blink Tears 0.25 % Drops
1 drp ophthalmic (eye) DAILYPRN PRN (Reason: dry eye)
Rx Instructions:
both eyes
Discharge Orders:
Discharge Patient (As Directed); Ordered 01/03/24
Ordered By: Rigo Moise
Discharge Date and Time
Discharge Date/Time: 01/03/24 14:47
Print Language: CANADIAN
== END 2024-01-03 14:47 | disposition home or self-care (01) | DRG 690 ==
LOC: 2 NORTH 12:45
PROVIDERS: Nurse Practitioner; Registered Nurse; ADMITTING PHYSICIAN Hospitalist; ATTENDING PHYSICIAN Hospitalist; CONSULT PHYSICIAN Student in an Organized Health Care Education/Training Program; EMERGENCY PHYSICIAN Emergency Medicine; FAMILY PHYSICIAN Nurse Practitioner
DX: N39.0 Urinary tract infection, site not specified (principal); Z16.24 Resistance to multiple antibiotics; E11.9 Type 2 diabetes mellitus without complications; K21.9 Gastro-esophageal reflux disease without esophagitis; G47.33 Obstructive sleep apnea (adult) (pediatric); K58.9 Irritable bowel syndrome, unspecified; F32.A Depression, unspecified; F41.9 Anxiety disorder, unspecified; B96.1 Klebsiella pneumoniae [K. pneumoniae] as the cause of diseases classified elsewhere; B96.20 Unspecified Escherichia coli [E. coli] as the cause of diseases classified elsewhere; K44.9 Diaphragmatic hernia without obstruction or gangrene; Z79.899 Other long term (current) drug therapy; Z79.84 Long term (current) use of oral hypoglycemic drugs; Z88.8 Allergy status to other drugs, medicaments and biological substances
CPT/HCPCS: 80048; 80053; 81003; 81015; 82962; 83036; 85025; 85027; 87077; 87086; 96374; 99285

== ENCOUNTER → 2024-01-22 14:27 | Outpatient (REF) | payer BC, SELFPAY | LOC: WDC 14:27 | PROVIDERS: ATTENDING PHYSICIAN Nurse Practitioner | DX: Z00.01 Encounter for general adult medical examination with abnormal findings (principal); E04.1 Nontoxic single thyroid nodule; Z12.31 Encounter for screening mammogram for malignant neoplasm of breast | CPT/HCPCS: 76536; 77063; 77067 ==

== ENCOUNTER → 2024-01-25 14:20 | Outpatient (REF) | payer BC, SELFPAY | LOC: RAD 14:20 | PROVIDERS: ATTENDING PHYSICIAN Internal Medicine Gastroenterology | DX: K58.1 Irritable bowel syndrome with constipation (principal) | CPT/HCPCS: 74018 ==

== ENCOUNTER → 2024-03-01 09:27 | Outpatient (REF) | payer BC, SELFPAY | LOC: RAD 09:27 | PROVIDERS: ATTENDING PHYSICIAN Surgery; FAMILY PHYSICIAN Physician Assistant; REFERRING PHYSICIAN Nurse Practitioner | DX: K44.9 Diaphragmatic hernia without obstruction or gangrene (principal); M54.50 Low back pain, unspecified | CPT/HCPCS: 72114; 74246 ==

== ENCOUNTER 2024-04-17 06:20 | Day surgery (SDC) | payer BC, SELFPAY ==
[2024-04-17] VITALS (18 sets, daily range): BP systolic 125–156; BP diastolic 66–89; BMI 30.4
[2024-04-17] MEDS: TYLENOL 1000 MG PO (09:54)
[2024-04-17] MEDS: NORMOSOL-R/PLASMALYTE-A 1000 IV ×2 (09:55→18:19)
[2024-04-17] MEDS: TRANSDERM-SCOP 1 PATCH TRANSDERM (09:55)
[2024-04-17 10:16] LABS: Glucose - Point of Care 104 mg/dl (70-99)
[2024-04-17 13:11] LABS: Glucose - Point of Care 213 mg/dl (70-99)
--- NOTE | 2024-04-17 14:05 | W.IMMPOSTOP ---
Surgical Immed Post Op Note
-
Primary Surgeon: Tiffanie
Assisting Surgeon: ALDO Mallory
Pre-op Diagnosis: Hiatal hernia, GERD
Post-op Diagnosis: Hiatal hernia, GERD
Procedure Performed: Laparoscopic hiatal hernia repair and Rashaad fundoplication, intra-operative EGD
Anesthesia Type: General
Specimen / Cultures: None
Estimated Blood Loss: 3 cc
Complications: None
Operative Findings:
1. Small sliding type I hiatal hernia
2. > 3 cm esophageal mobilization, bl vagi identified, no pleural violation
3. Posterior crural closure with 0 silk x2 (1 pledget, 1 non)
4. Loose floppy Rashaad fundoplication over [address]
[2024-04-17 14:42] LABS: Glucose - Point of Care 130 mg/dl (70-99)
[2024-04-17] MEDS: DILAUDID 0.5 MG IV ×4 (15:09→19:48)
[2024-04-17] MEDS: OFIRMEV 100 IV ×2 (16:14→22:08)
[2024-04-17 18:17] LABS: Glucose - Point of Care 116 mg/dl (70-99)
[2024-04-17] MEDS: ZOFRAN 4 MG IV (22:08)
[2024-04-17 23:13] LABS: Glucose - Point of Care 109 mg/dl (70-99)
[2024-04-18] MEDS: OFIRMEV 100 IV ×2 (03:00→09:13)
[2024-04-18] MEDS: DILAUDID 0.5 MG IV ×3 (03:01→22:25)
[2024-04-18] MEDS: NORMOSOL-R/PLASMALYTE-A 1000 IV ×3 (03:10→20:29)
[2024-04-18 03:14] VITALS: BP 136/74
[2024-04-18 06:21] LABS: Glucose - Point of Care 95 mg/dl (70-99)
--- NOTE | 2024-04-18 06:53 | W.PN.GS2 ---
Today's Communication / Plan
-
-- Clears ADAT to fulls
-- Pain control: Tylenol, Toradol if Hb OK, lq Oxycodone, IV Dilaudid PRN
-- Continue IVF while diet being advanced
-- DVT: Lovenox if Hb OK
-- Dispo pending
Assessment / Plan
-
Patient is a 54 yo F POD#1 s/p laparoscopic hiatal hernia repair and Rashaad fundoplication
AVSS
Labs pending
Recovering well. No post-op concerns, recovering well. Plan for dietary advancement throughout the day, if tolerates, pain controlled and weaned off O2 OK for DC.
-- Clears ADAT to fulls
-- Pain control: Tylenol, Toradol if Hb OK, lq Oxycodone, IV Dilaudid PRN
-- Continue IVF while diet being advanced
-- Home meds
-- DVT: Lovenox if Hb OK
-- GI: None needed
-- OOB/ambulate
-- Dispo pending
Subjective Data
-
Date of Service: April 18, 2024
Reports lower chest and back pain. No nausea or emesis currently, nausea overnight relieved with Zofran. No significant dysphagia. No dizziness or lightheadedness. Slightly SOB with walking.
Objective Data
-
Intake and Output
04/16/24 04/17/24 04/18/24
06:59 06:59 06:59
Intake Total 1450 / 1450
Output Total 500 / 500
Balance 950 / 950
Intake:
Oral fluids 0 / 0
IV fluids (Total) 1450 / 1450
Normosol 250 / 250
Output:
Urine, Mcfarlane 500 / 500
Other:
Number of approximated LARGE 4
amounts of urine
Vital Signs
Temp Pulse Resp BP Pulse Ox
98.0 F 63 16 136/74 97
04/18/24 03:14 04/18/24 03:14 04/18/24 03:14 04/18/24 03:14 04/18/24 03:14
Physical Exam
-
Gen: NAD
Abd: soft, mild tenderness, ND/obese, non-peritoneal, incisions c/d/i - no erythema, ecchymosis or drainage
Patient has a mcfarlane catheter: No
Patient has a central line: No
[2024-04-18 07:12] LABS: Blood Urea Nitrogen 11 mg/dl (7-17); Calcium 8.9 mg/dl (8.4-10.2); Carbon Dioxide 26 mmol/L (22-30); Chloride 102 mmol/L (98-107); Estimated Creatinine Clearance 124 ml/min; Glucose 99 mg/dl (70-99); Potassium 4.7 mmol/L (3.5-5.1); Sodium 137 mmol/L (135-145); eGFR > 60.00
[2024-04-18 07:15] LABS: Hematocrit 31.9 % (37.0-47.0); Hemoglobin 10.9 g/dL (12.0-16.0); Mean Corp Hgb Conc. 34.2 g/dL (33.0-37.0); Mean Corpuscular Volume 79.2 fL (81.0-99.0); Mean Platelet Volume 10.5 fL (7.4-10.4); Platelet Count 329 10^3/uL (130-400); Red Blood Cell Count 4.03 10^6/uL (4.20-5.40); Red Cell Dist. Width 13.9 % (11.5-14.5); White Blood Cell Count 7.2 10^3/uL (4.8-10.8)
[2024-04-18 07:20] VITALS: BP 142/76
[2024-04-18 08:24] LABS: Glycohemoglobin (HgbA1c) 6.4 % (4.0-5.6)
[2024-04-18] MEDS: TORADOL 15 MG IV ×2 (09:07→15:57)
--- NOTE | 2024-04-18 09:38 | PTCARENOTE ---
pt tolerated CLD, ADAT per surgery. C/O Headache, see MAR
--- NOTE | 2024-04-18 09:38 | CM ---
Reviewed the chart notes and spoke with the patient at the bedside. The patient resides with her spouse in a two story home with one step to enter. The patient reports no DME/VN/SNF. The patient reports she no longer uses a CPAP. The patient
confirmed her pharmacy of choice is [facility]. CM continues to be available to patient/family and is monitoring medical plan for needs at discharge.
Plan: Discharge to home when medically stable. Patient's spouse will provide transportation home.
[2024-04-18] MEDS: ROXICODONE ORAL SOLUTION 5 MG PO (11:28)
[2024-04-18 11:30] VITALS: BP 139/82
[2024-04-18 12:32] LABS: Glucose - Point of Care 105 mg/dl (70-99)
[2024-04-18 15:30] VITALS: BP 129/66
--- NOTE | 2024-04-18 16:32 | PTCARENOTE ---
dscussed with surgery, continue ADAT. pt c/o headache despite Toradol, amy. see MAR
[2024-04-18] MEDS: LOVENOX 40 MG SC (17:22)
[2024-04-18 17:30] LABS: Glucose - Point of Care 88 mg/dl (70-99)
[2024-04-18] MEDS: COLACE 100 MG PO (20:14)
[2024-04-18 21:21] LABS: Glucose - Point of Care 92 mg/dl (70-99)
[2024-04-18 23:41] VITALS: BP 134/77
[2024-04-19] MEDS: DILAUDID 0.5 MG IV (03:20)
[2024-04-19 06:32] LABS: Hematocrit 32.5 % (37.0-47.0); Hemoglobin 11.1 g/dL (12.0-16.0); Mean Corp Hgb Conc. 34.2 g/dL (33.0-37.0); Mean Corpuscular Hgb 27.1 pg (27.0-31.0); Mean Corpuscular Volume 79.5 fL (81.0-99.0); Mean Platelet Volume 10.2 fL (7.4-10.4); Platelet Count 347 10^3/uL (130-400); Red Blood Cell Count 4.09 10^6/uL (4.20-5.40); Red Cell Dist. Width 13.8 % (11.5-14.5); White Blood Cell Count 6.5 10^3/uL (4.8-10.8)
[2024-04-19 06:54] LABS: Blood Urea Nitrogen 12 mg/dl (7-17); Calcium 8.7 mg/dl (8.4-10.2); Carbon Dioxide 30 mmol/L (22-30); Chloride 104 mmol/L (98-107); Estimated Creatinine Clearance 124 ml/min; Glucose 87 mg/dl (70-99); Potassium 4.5 mmol/L (3.5-5.1); Sodium 138 mmol/L (135-145); eGFR > 60.00
[2024-04-19 07:20] VITALS: BP 150/86
--- NOTE | 2024-04-19 07:24 | W.PN.GS2 ---
Today's Communication / Plan
-
-- Dc today
Assessment / Plan
-
Patient is a 54 yo F POD#2 s/p laparoscopic hiatal hernia repair and Rashaad fundoplication
AVSS
Labs stable and no concerns
Recovering well. No post-op concerns, recovering well. DC today.
-- Soft diet, education provided, hand-out provided
-- Pain control: Tylenol, Toradol, lq Oxycodone
-- HLIV
-- Home meds
-- DVT: Lovenox if Hb OK
-- GI: None needed
-- OOB/ambulate
-- DC today
Subjective Data
-
Date of Service: April 19, 2024
No complaints. No significant dysphagia, no nausea or emesis. Pain improved, PHILLIPS relieved. Voiding. Ambulating.
Objective Data
-
Intake and Output
04/18/24 04/19/24 04/20/24
06:59 06:59 06:59
Intake Total 1450 / 1450 2640 / 2640
Output Total 500 / 500
Balance 950 / 950 2640 / 2640
Intake:
Oral fluids 0 / 0 1440 / 1440
IV fluids (Total) 1450 / 1450 1200 / 1200
Normosol 250 / 250
Output:
Urine, Mcfarlane 500 / 500
Other:
Number of approximated SMALL 3
amounts of urine
Number of approximated MODERATE 2
amounts of urine
Number of approximated LARGE 4
amounts of urine
Vital Signs
Temp Pulse Resp BP Pulse Ox
98.1 F 62 14 134/77 96
04/18/24 23:41 04/18/24 23:41 04/18/24 23:41 04/18/24 23:41 04/18/24 23:41
Lab Results
04/19/24 05:37
04/19/24 05:37
Calcium 8.7 mg/dl (8.4-10.2) 04/19/24 05:37
Physical Exam
-
Gen: NAD
Abd: soft, NT/ND, non-peritoneal, incisions c/d/i - no erythema, ecchymosis or drainage
Patient has a mcfarlane catheter: No
Patient has a central line: No
[2024-04-19 08:47] LABS: Glucose - Point of Care 83 mg/dl (70-99)
[2024-04-19] MEDS: COLACE 100 MG PO (09:03)
[2024-04-19] MEDS: NORMOSOL-R/PLASMALYTE-A IV (09:05)
[2024-04-19] MEDS: ROXICODONE ORAL SOLUTION 5 MG PO (09:09)
[2024-04-19 11:35] VITALS: BP 137/89
== END 2024-04-19 12:02 | disposition home or self-care (01) ==
LOC: SDS 06:20
PROVIDERS: ATTENDING PHYSICIAN Surgery
DX: K44.9 Diaphragmatic hernia without obstruction or gangrene (principal); K21.9 Gastro-esophageal reflux disease without esophagitis
CPT/HCPCS: 43280; 80048; 82962; 83036; 85027

== ENCOUNTER → 2024-05-01 13:34 | Outpatient (REF) | payer BC, SELFPAY | LOC: RAD 13:34 | PROVIDERS: ATTENDING PHYSICIAN Surgery; FAMILY PHYSICIAN Nurse Practitioner | DX: K44.9 Diaphragmatic hernia without obstruction or gangrene (principal); Z48.89 Encounter for other specified surgical aftercare | CPT/HCPCS: 71046 ==

== ENCOUNTER → 2024-05-21 09:42 | Outpatient (REF) | payer BC, SELFPAY | LOC: HWRAD 09:42 | PROVIDERS: ATTENDING PHYSICIAN Otolaryngology; FAMILY PHYSICIAN Nurse Practitioner | DX: R22.1 Localized swelling, mass and lump, neck (principal) | CPT/HCPCS: 76536 ==

== ENCOUNTER → 2024-05-22 09:14 | Outpatient (REF) | payer BC, SELFPAY ==
[2024-05-22 09:54] LABS: Hematocrit 38.3 % (37.0-47.0); Hemoglobin 12.6 g/dL (12.0-16.0); Mean Corp Hgb Conc. 32.9 g/dL (33.0-37.0); Mean Corpuscular Hgb 26.4 pg (27.0-31.0); Mean Corpuscular Volume 80.3 fL (81.0-99.0); Mean Platelet Volume 9.7 fL (7.4-10.4); Platelet Count 354 10^3/uL (130-400); Red Blood Cell Count 4.77 10^6/uL (4.20-5.40); Red Cell Dist. Width 13.7 % (11.5-14.5); White Blood Cell Count 5.5 10^3/uL (4.8-10.8)
[2024-05-22 11:07] LABS: % Basophils 0.5 % (0-2); % Eosinophils 3.5 % (0-6); % Monocytes 6.6 % (1.7-9.3); % Neutrophils 37.4 % (42.2-75.2); Absolute Eosinophils 0.2 10^3/uL (0-0.7); Absolute Lymphocytes 2.9 10^3/uL (1.2-3.4); Absolute Monocytes 0.4 10^3/uL (0.1-0.6); Absolute Neutrophils 2.1 10^3/uL (1.4-6.5); Nucleated Red Blood Cells % 0 %
[2024-05-22 11:10] LABS: Blood Urea Nitrogen 16 mg/dl (7-17); Carbon Dioxide 28 mmol/L (22-30); Chloride 106 mmol/L (98-107); Glucose 118 mg/dl (70-99); Sodium 142 mmol/L (135-145); eGFR > 60.00
== END ==
LOC: REG 09:14
PROVIDERS: ATTENDING PHYSICIAN Nurse Practitioner; FAMILY PHYSICIAN Nurse Practitioner
DX: N30.10 Interstitial cystitis (chronic) without hematuria (principal)
CPT/HCPCS: 36415; 80048; 85025; 93005

== ENCOUNTER → 2024-09-17 08:21 | Outpatient (REF) | payer BC, SELFPAY | LOC: RCS 08:21 | PROVIDERS: ATTENDING PHYSICIAN Nurse Practitioner | DX: R00.2 Palpitations (principal) | CPT/HCPCS: 93225; 93226 ==

== ENCOUNTER → 2025-02-12 14:54 | Outpatient (REF) | payer BC, SELFPAY | LOC: WDC 14:54 | PROVIDERS: ATTENDING PHYSICIAN Nurse Practitioner | DX: Z12.31 Encounter for screening mammogram for malignant neoplasm of breast (principal); Z12.39 Encounter for other screening for malignant neoplasm of breast | CPT/HCPCS: 77063; 77067 ==